=== PATIENT | male | born 1990 | race Caucasian/White ===

== ENCOUNTER 2016-07-16 02:45 | Emergency (ER) | payer OTHER ==
[~2016-07-16] VITALS: Ht 190.5 cm; Wt 175.5 kg
[2016-07-16 02:46] VITALS: BP_SYST 142
[2016-07-16 03:22] VITALS: BP_SYST 141
== END 2016-07-16 03:22 ==
LOC: SED 02:45
DX: Z02.89 Encounter for other administrative examinations (principal)